=== PATIENT | female | born 1965 | race Caucasian/White ===

== ENCOUNTER → 2017-12-20 06:58 | Outpatient (CLI) | payer BC, SELFPAY ==
[2017-12-20 07:59] LABS: Absolute Lymphocyte Count 2.01 X10^3/ul (0.83-4.51); Absolute Neutrophil Count 4.5 X10^3/uL (2.0-7.7); Basophil# 0.06 X10^3/uL; Basophil% 0.8 % (0-1); Eosinophil# 0.08 X10^3/uL; Eosinophils% 1.1 % (0-5); Hemoglobin 14.1 g/dl (12.0-15.0); Lymphocyte # 2.01 X10^3/ul (4.0); Lymphocyte % 27.2 % (19-41); Mean Corp Hgb Conc 34.4 g/gl (32-36); Mean Corpuscular Hgb 31.3 pg (27.0-32.0); Mean Corpuscular Volume 90.9 fL (81-99); Mean Platelet Vol. 10.8 fl (6.2-12.0); Monocyte# 0.75 X10^3/uL; Monocyte% 10.1 % (0-10); Neutrophil # 4.48 X10^3/uL (2.7-7.7); Neutrophil % 60.7 % (47-70); Platelet Count 271 K/mm3 (150-450); RBC Distribution Width SD 39.7 fl (35.1-43.9); Red Blood Count 4.51 M/mm3 (4.2-5.4); White Blood Count 7.4 K/mm3 (4.4-11.0)
[2017-12-20 08:01] LABS: POSITIVE COUNT NO; POSITIVE DIFFERENTIAL NO; POSITIVE MORPHOLOGY NO
[2017-12-20 08:40] LABS: ALB/GLOB Ratio 0.9 RATIO (0.9-2.4); AST(SGOT) 13 U/L (15-37); Alanine Aminotransfer ALT/SGPT 19 U/L (13-56); Albumin, Serum 3.3 g/dL (3.2-5.0); Alkaline Phosphatase 60 U/L (45-117); Anion Gap 7 (5-15); BUN 13 mg/dL (7-18); BUN/Creat Ratio 19.3 RATIO (10-20); Calcium,Total 8.1 mg/dL (8.5-10.1); Chloride 105 mmol/L (98-107); Cholesterol 148 mg/dL (200); Creatinine, Serum 0.67 mg/dL (0.55-1.02); EST Glomerular Filtration Rate 98 mL/min (>60); Est Glom Filt Rate - Afr Amer 119 mL/min (>60); Globulin 3.6 g/dL (2.2-4.2); Glucose 83 mg/dL (74-106); High Density Lipoprotein 62 mg/dL; Protein, Total 6.9 g/dL (6.4-8.2); Sodium Level 139 mmol/L (136-145); T4 Total, Thyroxin 7.6 ug/dL (4.8-13.9); Triglycerides 49 mg/dL; Very Low Density Lipoprotein 10 mg/dL (5-40)
== END ==
PROVIDERS: Family Provider Nurse Practitioner; PCP Nurse Practitioner; Visit Provider Physician Assistant
DX: E66.3 Overweight (principal)
CPT/HCPCS: 36415; 80053; 80061; 84436; 84443; 85025

== ENCOUNTER → 2018-08-07 14:18 | Outpatient (CLI) | payer BC, SELFPAY ==
--- NOTE | 2018-08-07 14:21 | US_ITS ---
STUDY: THYROID ULTRASOUND REASON FOR EXAM: Female, 52 years old. Enlarged right lobe of the thyroid gland. TECHNIQUE: Ultrasound evaluation of the thyroid was performed with real-time and static fowler-scale imaging. # of Images: 59 COMPARISON: July 26, 2005. FINDINGS: RIGHT LOBE: The right lobe of the thyroid gland is enlarged and measures 5.7 x 1.7 x 1.4 cm. There is a homogeneous echotexture. Solid lower pole nodule measuring 0.3 x 0.2 x 0.2 cm LEFT LOBE: The left lobe of the thyroid gland is enlarged and measures 5.2 x 1.7 x 1.3 cm. There is a homogeneous echotexture. Lower pole solid nodule measuring 1.1 x 1.0 x 0.9 cm . ISTHMUS: The isthmus measures 3 mm . The regional lymph nodes are normal. US/Thyroid IMPRESSION: The thyroid gland is enlarged. Both lobes are slightly smaller as compared to the prior study. 1.1 cm solid nodule inferior pole left lobe increased in size since the prior study where it measured 0.6 cm in greatest dimension. Stable small solid nodule right lobe. Electronically Signed: Alvin Rasmussen MD at 7:45 EDT , Service support ,
== END ==
PROVIDERS: Family Provider Nurse Practitioner; PCP Nurse Practitioner; Referring Provider Nurse Practitioner; Visit Provider Nurse Practitioner
DX: E04.9 Nontoxic goiter, unspecified (principal)
CPT/HCPCS: 76536

== ENCOUNTER 2019-05-23 17:17 | Emergency (ER) | payer BC, SELFPAY ==
[2019-05-23 17:18] VITALS: BP 155/84; PULSE 89; RESP 18; TEMP 36.4; O2SAT 98; BMI 28.6
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
[2019-05-23] MEDS: Morphine 4 MG/ML Syringe IV (17:51)
[2019-05-23] MEDS: Ondansetron 4 MG/2 ML Vial IV (17:51)
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
[2019-05-23 19:14] VITALS: PULSE 80
== END 2019-05-23 19:16 | disposition home or self-care (01) ==
PROVIDERS: Emergency Provider Emergency Medicine; Family Provider Nurse Practitioner; PCP Nurse Practitioner
DX: S60.222A Contusion of left hand, initial encounter (principal); S60.211A Contusion of right wrist, initial encounter; S20.212A Contusion of left front wall of thorax, initial encounter; V53.5XXA Driver of pick-up truck or van injured in collision with car, pick-up truck or van in traffic accident, initial encounter; Y93.89 Activity, other specified; Y92.410 Unspecified street and highway as the place of occurrence of the external cause
CPT/HCPCS: 71250; 73110; 73130; 74176; 96374; 96375; 99285; Q9967; A4216; J2405

== ENCOUNTER → 2020-07-26 | Outpatient (CLI) | payer BC, SELFPAY ==
--- NOTE | 2020-07-26 14:33 | CT_ITS ---
STUDY: CT CHEST WITHOUT CONTRAST REASON FOR EXAM: Female, 54 years old. PULM NODULE RADIATION DOSAGE (If Supplied By Facility): CTDIvol = ( 12.38 ) mGy, DLP = ( 557.57 ) mGycm TECHNIQUE: Transaxial imaging was performed without the administration of intravenous contrast material. Multiplanar coronal and sagittal images were reformatted. Individualized dose optimization techniques were used for this CT. COMPARISON: 05/23/2019 FINDINGS: Bilateral breast implants noted. Well-defined dense nodule in the left lung base is stable from prior study (image 146 of series 4). No new or enlarging pulmonary nodule. There is no demonstrated pleural abnormality. Normal heart and pericardium. Normal mediastinum. Normal hilar regions. Normal unenhanced pulmonary arteries. Normal aorta arch and descending thoracic aorta. There are multi-level degenerative changes of the thoracic spine. There is no demonstrated abnormality of the visualized upper abdomen. CT/Chest without Contrast IMPRESSION: 1. Stable (for more than one year) left lower lobe nodule considered a benign/postinflammatory etiology. No specific imaging follow-up recommendations according to FLEISCHNER Society standards. 2. No new or enlarging pulmonary nodule. Electronically Signed: Krishan Valero MD ([place]) at 9:07 EDT , Service support ,
== END | disposition home or self-care (01) ==
LOC: CT 14:30
PROVIDERS: PCP Nurse Practitioner; Referring Provider Nurse Practitioner; Visit Provider Nurse Practitioner
DX: R91.8 Other nonspecific abnormal finding of lung field (principal)
CPT/HCPCS: 71250

== ENCOUNTER 2021-12-13 14:24 | Outpatient (CLI) | payer BC, SELFPAY ==
--- NOTE | 2021-12-13 14:29 | US_ITS ---
STUDY: THYROID ULTRASOUND REASON FOR EXAM: Female, 56 years old. GLOBUS HYSTERICUS TECHNIQUE: Ultrasound evaluation of the thyroid was performed with real-time and static fowler-scale imaging. COMPARISON: 08.07.18 FINDINGS: RIGHT LOBE: The right lobe of the thyroid gland measures 5.3x1.6x1.3 cm. There is a homogeneous echotexture. There is a nodule. 3x2x2 mm nodule noted. The lesion is solid / cystic with regular margins and bjorn nodular doppler flow. LEFT LOBE: The left lobe of the thyroid gland measures 5.2x1.6x1.2 cm. There is a heterogeneous echotexture. There is a nodule. Nodule is 12 x 12 x 11 mm.The lesion is solid with regular margins and bjorn nodular /intra-nodular doppler flow. ISTHMUS: The isthmus measures 3 mm. US/Thyroid IMPRESSION: RIGHT nodule is stable. This nodule is mixed cystic and solid, anechoic, [id number], smoothly marginated and contains no echogenic foci. TI-RADS points: 1. TI-RADS category: TR1. This nodule is benign and no FNA or follow-up is necessary. There is a single left nodule that is stable. This nodule is solid or almost completely solid, anechoic, [id number], smoothly marginated and contains no echogenic foci. TI-RADS points: 2. TI-RADS category: TR2. This nodule is not suspicious and no FNA or follow-up is necessary. Electronically Signed: Micheal Novak MD at 16:09 EST ,
== END 2021-12-13 23:59 | disposition home or self-care (01) ==
PROVIDERS: PCP Nurse Practitioner; Referring Provider Nurse Practitioner; Visit Provider Nurse Practitioner
DX: F45.8 Other somatoform disorders (principal)
CPT/HCPCS: 76536

== ENCOUNTER → 2022-10-22 | Outpatient (CLI) | payer BC, SELFPAY ==
--- NOTE | 2022-10-22 08:24 | RAD_ITS ---
STUDY: X-RAY - ESOPHAGUS (BARIUM SWALLOW) WITH FLUOROSCOPY REASON FOR EXAM: Female, 56 years old. GERD TECHNIQUE: 16 view(s) of the esophagus were obtained following swallowing of barium. FLUOROSCOPY TIME (if supplied): (28 seconds) minutes/seconds COMPARISON: None. FINDINGS: There is no demonstrated esophageal foreign body. There is no demonstrated stricture or mucosal abnormality. Normal gastroesophageal junction, without a demonstrated hiatal hernia. The patient ingested a 12 mm tablet of barium without any difficulty. Normal visualized aortic arch and descending thoracic aorta. Normal visualized pulmonary parenchyma. Normal visualized osseous structures of the thorax. RAD/Esophagus Dual Contrast IMPRESSION: Normal plain film x-ray examination (barium swallow) of the esophagus. Electronically Signed: Socrates Padilla MD at 15:36 EST ,
== END | disposition home or self-care (01) ==
PROVIDERS: PCP Nurse Practitioner; Referring Provider Otolaryngology; Visit Provider Otolaryngology
DX: K21.9 Gastro-esophageal reflux disease without esophagitis (principal)
CPT/HCPCS: 74221

== ENCOUNTER → 2023-05-30 | Outpatient (CLI) | payer BC, SELFPAY ==
[2023-05-30 10:29] LABS: Cholesterol 188 mg/dL (200); High Density Lipoprotein 76 mg/dL; Triglycerides 43 mg/dL; Very Low Density Lipoprotein 9 mg/dL (5-40)
== END | disposition home or self-care (01) ==
LOC: LAB 08:38
PROVIDERS: PCP Nurse Practitioner Family; Referring Provider Nurse Practitioner Family; Visit Provider Nurse Practitioner Family
DX: E78.5 Hyperlipidemia, unspecified (principal)
CPT/HCPCS: 36415; 80061

== ENCOUNTER → 2024-07-07 | Outpatient (CLI) | payer BC, SELFPAY ==
--- NOTE | 2024-07-07 08:16 | NM_ITS ---
CLINICAL: 58-year-old female with abnormal in vitro thyroid function studies. I-123 THYROID UPTAKE and SCAN COMPARISON: Thyroid ultrasound report 12/13/2023 FINDINGS: The patient was administered a 332 uCi I-123 capsule by mouth. The 4-hour I-123 radioactive iodine thyroidal uptake was calculated to be 14.6 % (normal 5 to 25 %). The 24-hour I-123 radioactive iodine thyroidal uptake was calculated to be 39.1 % (normal 5 to 40 %). The I-123 thyroid scan demonstrates homogeneous radiopharmaceutical concentration throughout both lobes of a U -shaped thyroid gland. There are no colloidal parenchymal hypofunctioning cold nodules noted in either lobe of the thyroid gland. NM/Thyroid Uptake Single or Mult IMPRESSION: 1. NORMAL 4- and UPPER LIMITS OF NORMAL 24-hour I-123 radioactive iodine thyroidal uptakes. 2. 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 (Kraig et al, J Nucl Med 32: 1455, 1991). 3. No hypofunctioning-cold nodules are identified. 4. A low-grade presentation of thyrotoxicosis is a diagnostic consideration. Electronically Signed: Roni Martino DO at 22:23 EDT ,
== END | disposition home or self-care (01) ==
PROVIDERS: PCP Nurse Practitioner Family; Referring Provider Nurse Practitioner Family; Visit Provider Nurse Practitioner Family
DX: R79.89 Other specified abnormal findings of blood chemistry (principal)
CPT/HCPCS: 78012; A9541

== ENCOUNTER 2025-02-23 13:05 | Emergency (ER) | payer BC, SELFPAY ==
[2025-02-23 13:06] VITALS: BP 122/71; PULSE 79; RESP 20; TEMP 36.6; O2SAT 99; BMI 25.2
[2025-02-23 13:08] VITALS: O2SAT 99
--- NOTE | 2025-02-23 13:08 | RAD_ITS ---
PROCEDURE: CHEST 1 VIEW (PORTABLE) 02/23/2025 REASON FOR EXAM: CHEST PAIN TECHNIQUE: Frontal view of the chest. COMPARISON: Medical Delivery Driver from the chest CT of 07/26/2020. RAD/Chest 1 View (Portable) IMPRESSION: No evidence of pulmonary edema. Lungs appear clear of acute disease. No pleural effusion or pneumothorax is noted. The cardiomediastinal silhouette is within the normal range. No acute osseous process is seen. Negative examination. Reading Location: [place] [id number]
[2025-02-23 13:42] LABS: Absolute Lymphocyte Count 2.79 X10^3/uL (0.83-4.51); Absolute Neutrophil Count 3.8 X10^3/uL (2.0-7.7); Basophil# 0.04 X10^3/uL; Basophil% 0.6 % (0-1); Eosinophil# 0.05 X10^3/uL; Eosinophils% 0.7 % (0-5); Hematocrit 38.1 % (37-47); Hemoglobin 13.3 g/dL (12.0-15.0); Lymphocyte # 2.79 X10^3/ul (0.83-4.51); Mean Corp Hgb Conc 34.9 g/dL (32-36); Mean Corpuscular Hgb 29.6 pg (27.0-32.0); Mean Corpuscular Volume 84.9 fL (81-99); Mean Platelet Vol. 10.4 fl (6.2-12.0); Monocyte# 0.49 X10^3/uL; Monocyte% 6.9 % (0-10); NRBC Flagged by Analyzer 0 % (0-5); Neutrophil # 3.76 X10^3/uL (2.7-7.7); Neutrophil % 52.5 % (47-70); Platelet Count 254 K/mm3 (150-450); RBC Distribution Width CV 11.9 % (11.6-14.6); RBC Distribution Width SD 36.6 fl (35.1-43.9); Red Blood Count 4.49 M/mm3 (4.2-5.4); White Blood Count 7.2 K/mm3 (4.4-11.0)
[2025-02-23 14:06] VITALS: BP 114/69; PULSE 69; PULSE 70; RESP 15; RESP 18; O2SAT 98; O2SAT 99
[2025-02-23 14:10] LABS: Anion Gap 9 (5-15); BUN 18 mg/dL (4-19); BUN/Creat Ratio 24.1 RATIO (10-20); Calcium,Total 9.6 mg/dL (7.6-11.0); Carbon Dioxide 22.8 mmol/L (21.0-32.0); Chloride 106 mmol/L (98-108); Creatinine, Serum 0.76 mg/dL (0.70-1.20); EST Glomerular Filtration Rate 91 (>60); Glucose 102 mg/dL (70-99); Potassium 3.9 mmol/L (3.3-5.1); Sodium Level 138 mmol/L (133-145); Troponin T High Sensitivity < 6 ng/L (<=14)
--- NOTE | 2025-02-23 14:30 | EX.ED.DYSGE1 ---
HPI History of Present Illness Chief Complaint: Palpitations Informant: patient Onset/Context/Timing Onset: Days Context: Gradual Onset Timing: Intermittent Quality: Fluttering Location: Chest Worsened by: Nothing Relieved by: Nothing Narrative Narrative: Patient presents with palpitations that have been getting worse over the past few days. Patient states she feels fluttering in her chest. Patient states she feels lightheaded and fatigued. Patient states the palpitations have been intermittent over the past couple days. Patient states nothing makes them better nothing makes them worse. Patient does admit to some shortness of breath with exertion. Patient denies any nausea or vomiting. Patient denies any fevers or chills. Patient admits to a mild headache. [facility] Medical History Graves disease [place] infection ADD (attention deficit disorder) Home Medications ?Medication ?Instructions ?Recorded ?Last Taken ?Type cyclobenzaprine 10 mg tablet mg PO 12/02/23 Unknown History methylphenidate HCl 20 mg biphasic mg PO 12/02/23 Unknown History 50-50 capsule,extended release montelukast 10 mg tablet 10 mg PO QPM #20 tabs 12/04/23 Unknown Rx (Singulair) pseudoephedrine 60 mg-DM 15 1 tab PO Q4-6H PRN cold symptoms 12/04/23 Unknown Rx mg-guaifenesin 400 mg tablet #20 tabs (Capmist DM) Allergy/AdvReac Type Severity Reaction Status Date / Time erythromycin base Allergy Anaphylaxis Verified 02/23/25 13:08 Family History no significant family his Surgical History No pertinent past surgical history Surgical History no surgical history Social History Smoking Status: Never smoker ROS ROS ED Constitutional Constitutional ED: Denies chills or fever(s) Eyes Eyes: Denies blurry vision or change in vision ENT ENT ED: Denies rhinorrhea or sore throat Cardiovascular Cardiovascular: Reports palpitations; Denies chest pain Respiratory/Chest Respiratory/Chest: Reports dyspnea and dyspnea on exertion; Denies cough Gastrointestinal Gastrointestinal: Denies nausea or vomiting Genitourinary Genitourinary ED: Denies dysuria or hematuria Musculoskeletal Musculoskeletal: Denies back pain or neck pain Integumentary Denies abscess or rash Neurologic Neurologic: Reports headache(s); Denies weakness Allergic/Immunologic Allergic/Immunologic ED: Denies mouth swelling or urticaria EXAM Physical Exam Const Vital Signs: 02/23/25 13:06 02/23/25 13:08 02/23/25 14:06 Temperature 97.8 F Temperature Source Oral Pulse Rate 79 69 Respiratory Rate 20 H 15 Blood Pressure 122/71 H 114/69 Blood Pressure Mean 88 84 Pulse Ox 99 99 99 Oxygen Delivery Method Room Air Room Air Room Air 02/23/25 14:06 02/23/25 16:30 02/23/25 16:55 Temperature 97.7 F L Temperature Source Pulse Rate 70 71 73 Respiratory Rate 18 16 16 Blood Pressure 114/69 123/74 H 117/77 Blood Pressure Mean 84 90 90 Pulse Ox 98 99 99 Oxygen Delivery Method Room Air Room Air Positive well nourished and well developed General Appearance ED: well developed and NAD HEENT Reports moist mucous membranes Neck supple and no JVD Resp normal respiratory effort and clear to auscultation bilaterally Cardio regular rate and regular rhythm GI non-tender and non-distended Palpation: soft Extremity General Extremety ED: Negative for edema or tenderness General Extremity: Negative for edema Neuro oriented x3, CN's II-XII intact bilaterally and no sensory deficits noted Sensorium / Orientation: alert Motor Exam: strength 5/5 throughout Psych mental status grossly normal MDM MDM MDM Narrative Medical decision making narrative: Differential diagnosis includes cardiac dysrhythmia, cardiac ischemia, electrolyte abnormality, pneumonia, dehydration, and anxiety. EKG will be obtained to assess for cardiac dysrhythmia and cardiac ischemia. Chest x-ray will be obtained to assess for pneumonia and pneumothorax. CBC will be obtained to assess for leukocytosis and anemia. Basic metabolic profile will be obtained to assess for electrolyte abnormality and renal function. High-sensitivity troponin will be obtained to assess for cardiac ischemia. 2-hour repeat high-sensitivity troponin will be obtained to assess for ongoing cardiac ischemia. Lab Data Attestation: I reviewed the patient's lab results. Lab results narrative: CBC was reviewed and was within normal limits. Basic metabolic profile was reviewed and was within normal limits. Initial high-sensitivity troponin was reviewed and was less than 6. 2-hour repeat high-sensitivity troponin was reviewed and was less than 6. Labs: Laboratory Results - last 24 hr 02/23/25 02/23/25 13:30 15:29 WBC 7.2 RBC 4.49 Hgb 13.3 Hct 38.1 MCV 84.9 MCH 29.6 MCHC 34.9 RDW Std Deviation 36.6 RDW Coeff of Adeline 11.9 Plt Count 254 MPV 10.4 Immature Gran % (Auto) 0.300 Neut % (Auto) 52.5 Lymph % (Auto) 39.0 [place] % (Auto) 6.9 Eos % (Auto) 0.7 Baso % (Auto) 0.6 Absolute Neuts (auto) 3.8 Absolute Lymphs (auto) 2.79 Nucleated RBC % 0 Sodium 138 Potassium 3.9 Chloride 106 Carbon Dioxide 22.8 Anion Gap 9 BUN 18 Creatinine 0.76 Estim Creat Clear Calc 71.10 Est GFR (MDRD) Non-Af 91 BUN/Creatinine Ratio 24.1 H Glucose 102 H Calcium 9.6 Troponin T High Sens < 6 Troponin T Hi Sens 2 Hr < 6 Radiography Chest X-Ray - ED: 1 View, Read by ED Physician, Read by Radiologist and No Acute Disease Diagnostic Testing: Clinical Impression(s) from Imaging Studies Chest X-Ray 02/23/25 13:08 IMPRESSION: No evidence of pulmonary edema. Lungs appear clear of acute disease. No pleural effusion or pneumothorax is noted. The cardiomediastinal silhouette is within the normal range. No acute osseous process is seen. Negative examination. Reading Location: [place] [id number] Portable 1 view chest x-ray was obtained. On my independent interpretation, lung mccullough are clear. There is normal cardiac silhouette. Bony thorax is normal. There is no acute process noted. Radiologist also interpreted the x-ray and agrees. EKG Initial EKG: Attestation: I personally reviewed and interpreted this EKG as follows: Interpretation: Sinus Rhythm (70) and No Acute Injury Pattern Comments: EKG was obtained. On my independent interpretation, it showed a normal sinus rhythm with a rate of 70. NE interval, QRS interval, and QTc intervals were all normal. [place] was normal. There are no acute ST or T wave changes. Prior EKG tracings: not available for review Prior: No Prior Treatment and Re-Evaluation :: Patient was advised of her findings. Patient was feeling better on reevaluation. Patient was instructed to follow-up with her primary care physician in 5 to 7 days. Patient states she was planning on having her thyroid function tests repeated with her primary care physician. Patient was instructed to continue with this follow-up. Patient was instructed to return if worse in any way. Patient understood and was agreeable with the plan. All questions were answered. Discharge Plan Triage Chief Complaint: Palpitations ED Provider: Trevin Taylor Dx/Rx/DC Orders Clinical Impression: Heart palpitations, ADD (attention deficit disorder) Instructions: ED Palpitations Prescriptions: No Action methylphenidate HCl 20 mg capsule,ER biphasic 50-50 PO cyclobenzaprine 10 mg tablet PO Capmist DM 60-15-400 mg tablet 1 tab PO Q4-6H PRN (Reason: cold symptoms) Qty: 20 0RF Rx Instructions: do not exceed 4 doses per 24 hrs montelukast [Singulair] 10 mg tablet 10 mg PO QPM Qty: 20 0RF Primary Care Provider: Marybeth Talbert NP Referrals: Marybeth Talbert NP, [facility] [Primary Care Provider] - 5-7 Days Print Language: Hungarian Disposition Disposition: Home, Self Care Discharge Date/Time: 02/23/25 16:58
[2025-02-23 15:59] LABS: Troponin T High Sens 2 HR < 6 ng/L (<=14)
[2025-02-23 16:30] VITALS: BP 123/74; PULSE 71; RESP 16; O2SAT 99
[2025-02-23 16:55] VITALS: BP 117/77; PULSE 73; RESP 16; TEMP 36.5; O2SAT 99
== END 2025-02-23 16:58 | disposition home or self-care (01) ==
PROVIDERS: Emergency Provider Emergency Medicine; PCP Registered Nurse; Visit Provider Emergency Medicine
DX: R00.2 Palpitations (principal); F98.8 Other specified behavioral and emotional disorders with onset usually occurring in childhood and adolescence
CPT/HCPCS: 71045; 80048; 84484; 85025; 93005; 99284; A4216